=== PATIENT | female | born 1965 | race Caucasian/White ===

== ENCOUNTER → 2016-11-13 | Outpatient (CLI) | payer BC ==
[~2016-11-13] MED LIST: LATA2.5D2 OP
--- NOTE | 2016-11-13 13:46 | RADRPT ---
PROCEDURE: XR pelvis/right hip. CLINICAL INDICATION: Hip pain TECHNIQUE: AP pelvis/AP and lateral right hip views available for review. COMPARISON: None available FINDINGS: There is a right total hip replacement. There is no evidence of loosening of the prosthesis. There i s no evidence of hardware failure. There is normal mineralization, architecture and alignment. No f ractures are identified. No osseous lesions are present. The left hip are unremarkable. The SI del nts are unremarkable. The soft tissues are unremarkable. IMPRESSION: Right total hip replacement Otherwise an unremarkable examination RPTAT: [facility] .Emanuel Shea MD, MD Date Time Electronically viewed and signed by .Emanuel Shea MD, on 11/13/2016 13:46 .B/
== END | disposition home or self-care (01) ==
LOC: HKI 08:56
PROVIDERS: ATTEND Orthopaedic Surgery
DX: Z47.1 Aftercare following joint replacement surgery (principal); Z96.641 Presence of right artificial hip joint
CPT/HCPCS: 73502; G0463